=== PATIENT | female | born 1950 | race Hispanic/Latino ===

== ENCOUNTER → 2022-09-03 | Outpatient (CLI) | payer OTHER | END | disposition home or self-care (01) | LOC: RAH 14:53 | PROVIDERS: ATTEND Internal Medicine | DX: I70.0 Atherosclerosis of aorta (principal); R94.4 Abnormal results of kidney function studies; M47.815 Spondylosis without myelopathy or radiculopathy, thoracolumbar region; N13.30 Unspecified hydronephrosis | CPT/HCPCS: 74176 ==

== ENCOUNTER → 2022-10-01 | Outpatient (CLI) | payer OTHER ==
[~2022-10-01] MED LIST: FUROSEMIDE 20MG VIAL ONE
== END | disposition home or self-care (01) ==
LOC: RAH 13:53
PROVIDERS: ATTEND Urology
DX: N13.30 Unspecified hydronephrosis (principal)
CPT/HCPCS: 78708; J1940; A9562

== ENCOUNTER → 2023-04-26 | Outpatient (CLI) | payer OTHER | END | disposition home or self-care (01) | LOC: RAH 13:31 | PROVIDERS: ATTEND Internal Medicine | DX: R91.1 Solitary pulmonary nodule (principal) | CPT/HCPCS: 74150 ==

== ENCOUNTER → 2024-03-14 | Outpatient (CLI) | payer OTHER | END | disposition home or self-care (01) | LOC: RAH 08:46 | PROVIDERS: ATTEND Internal Medicine | DX: N18.32 Chronic kidney disease, stage 3b (principal) | CPT/HCPCS: 76700 ==

== ENCOUNTER → 2025-09-04 | Outpatient (CLI) | payer OTHER ==
[~2025-09-04] MED LIST changes: -FUROSEMIDE 20MG VIAL ONE; +IOHEXOL 350 MG/ML 100ML INFUS..BTL IV ONE
--- NOTE | 2025-09-05 10:31 | HMCIMG ---
EXAM: CT Abdomen and Pelvis with and without IV contrast CLINICAL HISTORY: Unspecified hydronephrosis TECHNIQUE: Axial computed tomography images of the abdomen and pelvis with and without intravenous contrast. CONTRAST: with and without intravenous contrast. COMPARISON: None provided. FINDINGS: LUNG BASES: The lung bases appear clear. No pleural effusions are seen. LIVER: Unremarkable. GALLBLADDER AND BILE DUCTS: The gallbladder appears within normal limits. No radioopaque gallstones are seen. No biliary ductal dilatation is evident. PANCREAS: Unremarkable. SPLEEN: Unremarkable. ADRENAL GLANDS: Unremarkable. KIDNEYS, URETERS, AND BLADDER: There is mild left-sided hydrouretronephrosis with air locules in the ureter and left renal calyceal system with surrounding perinephric fat stranding. There is mild right-sided hydrouretronephrosis with mild perinephric fat stranding. 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 There is an enhancing wall thickening in the bilateral ureters. No urinary calculi are seen. No hydronephrosis. Thick-walled urinary bladder with adjacent stranding, consistent with cystitis. Air noted in the urinary bladder which may be due to recent instrumentation. STOMACH AND BOWEL: Colonic diverticulosis without diverticulitis. Unremarkable appearance of the stomach and small bowel. No evidence of bowel obstruction. No evidence suggesting enteritis or colitis. 1.2 cm-sized umbilical defect with omental fat herniation. PERITONEUM: No free fluid. No free air. LYMPH NODES: No lymphadenopathy is evident. REPRODUCTIVE: The uterus is not well visualized. VASCULATURE: Atherosclerotic changes in the form of eccentric vessel wall calcification in the abdominal aorta and its major branches. No evidence of abdominal aortic aneurysm. BONES: Degenerative changes in the visualized spine in the form of marginal osteophytes and degenerative discs at multiple lumbar levels. No aggressive appearing osseous lesion. No acute osseous pathology is evident. IMPRESSION: 1. Bilateral hydrouretronephrosis, more prominent on the left. Air in the left ureter and renal calyceal system which may be due to reflux of air from the urinary bladder or may be due to emphysematous pyelonephritis. Clinical correlation is recommended. 2. Enhancing wall thickening of bilateral ureters, consistent with pyelitis. 3. Thick-walled urinary bladder with adjacent stranding, consistent with cystitis. Air noted in the urinary bladder which may be due to recent instrumentation. 4. Completely duplicated left ureter. 5. No bowel obstruction or inflammation. 6. Colonic diverticulosis without diverticulitis. /[place]
== END | disposition home or self-care (01) ==
LOC: RAH 08:24
PROVIDERS: ATTEND Internal Medicine
DX: K57.30 Diverticulosis of large intestine without perforation or abscess without bleeding (principal); N13.30 Unspecified hydronephrosis; I70.0 Atherosclerosis of aorta; M47.816 Spondylosis without myelopathy or radiculopathy, lumbar region; M51.369 Other intervertebral disc degeneration, lumbar region without mention of lumbar back pain or lower extremity pain; M25.78 Osteophyte, vertebrae
CPT/HCPCS: 74178; Q9967

== ENCOUNTER 2025-09-13 13:35 | Inpatient (IN) | payer OTHER ==
[~2025-09-13] VITALS: Ht 165.1 cm; Wt 102.1 kg
[2025-09-13 14:11] LABS: NUCLEATED RED BLOOD CELLS 0.0 % (0.0-0.19); PLATELET COUNT (AUTO) 259.0 K/uL (130-400); RED BLOOD CELL COUNT(AUTO) 3.49 MIL/uL (4.00-5.50); RED CELL DISTRIBUTION WIDTH 14.6 % (11.0-15.5); WHITE BLOOD COUNT (AUTO) 8.4 K/uL (4.8-10.8)
[2025-09-13 14:24] LABS: INR 1.03 (0.85-1.15)
[2025-09-13 14:27] LABS: ASPARTATE AMINOTRANSFERASE 24.0 U/L (10-37); CREATININE 1.3 mg/dL (0.5-1.0); GLOMERULAR FILTR. RATE CALC 43.0 mL/min (>90); GLUCOSE,RANDOM 154.0 mg/dL (70-105); SODIUM SERUM 143.0 mmol/L (136-145); TOTAL PROTEIN, SERUM 7.4 g/dL (6.0-8.3); UREA NITROGEN, BLOOD 28.0 mg/dL (7-18)
--- NOTE | 2025-09-13 15:05 | NUR ---
DCP:HOME Pt currently lives at home and her granddaughter lives with her. Pt states that she uses a cane to ambulate. Pt denies having any home health or provider services. Pt states that she can complete ADLs independently. PCP is Dr. Meraz and uses [facility] for any RX needs. At [place] pt will want to go home and family can assist with transportation. Addendum: 09/13/25 at 1507 by RICK SPAIN SS Amended: Links added.
[2025-09-13 18:07] LABS: ADD UA MICROSCOPIC YES; APPEARANCE,URINE CLEAR (CLEAR); GLUCOSE, URINE (UA) >=1000 mg/dL (NEGATIVE); NITRATE,URINE NEGATIVE (NEGATIVE); OCCULT BLOOD,URINE NEGATIVE (NEGATIVE)
[2025-09-13 18:08] LABS: SQUAMOUS EPITHELIAL CELL,UR FEW /HPF (0-2)
[2025-09-13 18:11] LABS: LEUKOCYTE ESTERASE ,URINE 75 Leu/uL (NEGATIVE)
--- NOTE | 2025-09-13 18:40 | NUR ---
REPORT GIVEN TO LEONARDO KING.
--- NOTE | 2025-09-13 18:40 | NUR ---
PATIENT TRANSPORTED TO [facility].
--- NOTE | 2025-09-13 18:54 | NUR ---
DR HARRIS AT BEDSIDE.
--- NOTE | 2025-09-13 19:00 | NUR ---
RECEIVED PATIENT FROM ER INTO ROOM #124, DAUGHTER AT BEDSIDE.
[2025-09-13] MEDS ORDERED: SOLI5TAB6 PO (20:35)
[2025-09-13] MEDS ORDERED: ROSU10TA98 PO (20:39)
[2025-09-13] MEDS ORDERED: LOSA25TA41 PO (20:41)
[2025-09-13] MEDS ORDERED: ATEN25TA PO (20:42)
[2025-09-13] MEDS ORDERED: LORA10TA7 PO (20:56)
[2025-09-13] MEDS ORDERED: IRON1CAP3 PO (20:56)
[2025-09-13] MEDS ORDERED: FOLI0.8T22 PO (20:56)
[2025-09-13] MEDS ORDERED: AMOX1TAB15 PO (20:56)
[2025-09-13] MEDS ORDERED: DAPA10TA PO (20:56)
[2025-09-13] MEDS ORDERED: CALC1TAB2 PO (20:56)
[2025-09-13] MEDS ORDERED: ACET-66 PO (20:56)
[2025-09-13] MEDS ORDERED: SENN-316 PO (20:56)
[2025-09-13] MEDS ORDERED: FLUT15.845 NS (20:56)
[2025-09-13] MEDS ORDERED: FINE10TA PO (20:56)
[2025-09-13] MEDS: LACTATED RINGERS 1000ML 1,000 ML IV SCH (22:26)
[2025-09-14] VITALS (8 sets, daily range): BP systolic 113–153; BP diastolic 62–78; PULSE 54–72; RESP 12–20; TEMP 97.7–98.4; O2SAT 95–97
[2025-09-14] MEDS: MEROPENEM 1GM 1 GM VIAL IVPB SCH (01:08)
--- NOTE | 2025-09-14 07:13 | NUR ---
SOTO CATHETER DR MENA ORDERED 16FR F/C TO BE PLACED FOR THIS PT. 3 ATTEMPTS MADE WITH 16FR AND 2 COUDE BY THIS NURSE AND 2 OTHER NURSES. OUTPUT FOR TONIGHT 550 HOWEVER PT IS INCONTINENT WELL. ABOVE REPORTED TO ONCOMING SHIFT.
--- NOTE | 2025-09-14 07:27 | HP ---
HISTORY AND PHYSICAL DATE OF SERVICE: 09/13/2025 PRESENTING COMPLAINT: Flank pain and abnormal imaging. HISTORY OF PRESENT ILLNESS: A 74-year-old female with history of obesity, hypertension, diabetes mellitus, who was being admitted directly from the clinic. The patient was seen in my clinic today due to finding of abnormal imaging with possible pyelonephritis and cystitis. Recent urine culture done in the primary care clinic came back positive for UTI and the patient was given Augmentin. CT urogram shows possible pyelonephritis. The patient is with some flank pain. Also intermittent chills and running fever. The patient complains of urinary incontinence. No cough. No shortness of breath. No palpitations or orthopnea. PAST MEDICAL HISTORY: * Morbid obesity. * Hypertension. * Diabetes mellitus. * Osteoarthritis. * Dyslipidemia. * UTI. PAST SURGICAL HISTORY: Bilateral total knee arthroplasty. Hysterectomy. ALLERGIES: No known drug allergies. MEDICATIONS: To be reviewed. SOCIAL HISTORY: No alcohol, tobacco, or illicit drug use. FAMILY HISTORY: Positive for diabetes mellitus. REVIEW OF SYSTEMS: Greater than 10-systems were reviewed and negative except as documented above. PHYSICAL EXAMINATION: GENERAL: An elderly female, awake, in no acute distress. VITAL SIGNS: Temperature 97.9, pulse 55, respiratory rate 19, blood pressure 162/59. EYES: No icterus. Pupils equal and reactive. HENT: No oral thrush seen. Moist oral mucosa. NECK: Supple. No JVD or thyromegaly. LUNGS: Good air entry. No rales ____. CARDIOVASCULAR SYSTEM: S1 and S2, regular. No murmur heard. ABDOMEN: Full, soft, nontender. Bowel sound is present. CENTRAL NERVOUS SYSTEM: Awake, alert and oriented x 3. No focal deficits. SKIN: No rashes. LYMPHATIC: No peripheral lymphadenopathy. BACK: No deformity. No pressure ulcer. MUSCULOSKELETAL: No joint swelling, erythema or tenderness. LABORATORY DATA: WBC 8.4, hemoglobin 11.0, platelet count 251. Sodium 142, potassium 4.7, BUN , creatinine 1.3. Urinalysis showed WBC 25, leukocyte esterase 75. RADIOLOGY: CT of the abdomen done on 09/04/2025 reported as bilateral hydronephrosis, more prominent on the left, may be due to reflux of urinary bladder. ASSESSMENT: A 74-year-old female admitted for possible pyelonephritis. CURRENT PROBLEMS: Include: * Possible pyelonephritis. * Bilateral hydronephrosis. * Diabetes mellitus. * Morbid obesity. * Urinary tract infection. * Dyslipidemia. * Hypertension. PLAN: * Admit the patient to medical floor. * The patient will be given ceftriaxone. * Urology evaluation. * Tylenol as needed for pair or fever. * Zofran for nausea, vomiting. * Lispro sliding scale. * ADA diet. * Home medication will be reconciled. * Monitor electrolytes and correct as needed. * Urology evaluation. TID: [id number] RECEIPT: [id number] [facility]
[2025-09-14] MEDS ORDERED: IOHEXOL-350 75 ML VIAL IV ONE (08:18)
--- NOTE | 2025-09-14 08:23 | CONS ---
DATE OF CONSULTATION: 09/13/2025 REQUESTING PHYSICIAN: Manav Pang MD REASON FOR CONSULTATION: Hydronephrosis and urinary tract infection. Dear Dr. Pang, I originally seen your patient for evaluation of hydronephrosis. HISTORY OF PRESENT ILLNESS: This is a 74-year-old female who apparently was visiting her daughter in [place] several weeks ago, fell. She had some pain in her back. She had a CT scan done of the abdomen and pelvis, and was noted to have bilateral hydronephrosis. Consultation was requested. The patient up on her return to [place], currently the patient states she is surprised to be in hospital. She has no pain, no fever, no chills, no dysuria. She has a history of urinary incontinence for which she has used Ditropan. She has no gross hematuria. No history of kidney stones. She was previously being seen for incomplete bladder emptying by a urologist up to about a year ago and currently lying in bed comfortably. ALLERGIES: None. MEDICATIONS: The patient's home medications have included Keflex. She is also on medication for diabetes as well as hyperglycemia and hypertension. PAST MEDICAL HISTORY: Diabetes type 2, hyperglycemia, and hypertension. PAST SURGICAL HISTORY: Significant for hysterectomy and bilateral knee replacements. FAMILY HISTORY: No kidney stones. 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 She has three children. Does not smoke or drink. REVIEW OF SYSTEMS: She has no symptoms of chest pain. Her appetite is good. No nausea or vomiting. No constipation or diarrhea. No headaches, dizziness, or nosebleeds. No joint pain, joint swelling, limitation of movement, night sweats, fever, chills, or skin rash. PHYSICAL EXAMINATION: GENERAL: On exam, female in no distress whatsoever. VITAL SIGNS: Temperature is 98, blood pressure is 140/80 with a pulse of 82. NECK: No adenopathy or supraclavicular masses palpable. LUNGS: Lung dhaliwal are clear to auscultation. HEART: Heart sounds are best heard in the fifth intercostal space . ABDOMEN: Abdomen is obese, soft, nontender. BACK: Back has no CVA tenderness. GENITALIA AND RECTAL: Deferred LABORATORY DATA: Laboratory data are reviewed in detail. The patient's sodium is 143, potassium 4.7, BUN 28 and creatinine 1.3. The patient's white count is 8.4, hematocrit is 35, platelet count 259. Urine actually shows cloudy urine, large amount of glucose. She has no bacteria, occasional white cells, no red cells. IMAGING STUDIES: Imaging studies reviewed today include a CT scan of her abdomen and pelvis with IV contrast shows incomplete duplication of collecting system on the left side with hydronephrosis. There may be a small amount of air in the collecting system on the left side performed 4 days ago. In addition, the bladder is moderately distended with some perivesical stranding consistent with possible cystitis. The patient has a small amount of air also in the bladder. ASSESSMENT: 1. Hematuria. 2. Duplicated collecting system, left side. 3. Mild hydronephrosis. RECOMMENDATIONS: 1. The patient to be placed on IV fluids with lactated Ringer's. 2. Meropenem is advised 1 gm q. 8 hours unless alternative medication has already been ordered by her admitting physician. 3. Tam catheter placement. 4. IV contrast enhanced CT scan of her abdomen and pelvis with IV contrast CT urogram. The patient has concerns and questions answered. Once the patient is discharged, follow up with PCP for referral to Urology. The patient's home medications include acetaminophen. She was previously on Augmentin. She is on Tylenol. She is also on Phenazone, fluticasone, folic acid, iron complex, loratadine, losartan, and rosuvastatin. The patient is also taking Vesicare 5 mg. The patient's questions were answered. Thank you for the opportunity of providing consulting your patient. Sincerely, TID: [id number] RECEIPT: [id number]
[2025-09-14] MEDS ORDERED: DOCUSATE SODIUM PO PRN (13:30)
[2025-09-14] MEDS ORDERED: SENNOSIDES PO PRN (13:30)
--- NOTE | 2025-09-14 18:10 | NUR ---
SOTO CATHETER ATTEMPTED TO INSERT SOTO CATHETER AT THIS TIME. DESPITE MULTIPLE ATTEMPTS, UNABLE TO INSERT SOTO CATHETER.
[2025-09-14] MEDS: CALCIUM CARBONATE PO SCH (20:31)
[2025-09-14] MEDS: ATENOLOL 25 MG TABLET PO SCH (20:31)
[2025-09-14] MEDS: VITAMIN D3 PO SCH (20:31)
--- NOTE | 2025-09-14 21:56 | NUR ---
CATHETER INSERTION SOTO UNABLE TO BE INSERTED X 2 NURSES. 16 FR, 14 FR ATTEMPTED, UNSUCCESSFUL. 10 FR STRAIGHT CATH INSERTED AT THIS TIME, CONNECTED TO SOTO BAG, DRAINING CLEAR YELLOW URINE. HELD IN PLACE WITH PUREWICK AND MESH PANTIES. PATIENT TURNING FOR BATHROOM CHANGES AT THIS TIME.
--- NOTE | 2025-09-14 22:13 | HMCIMG ---
EXAM: CT SCAN OF THE ABDOMEN AND PELVIS WITH INTRAVENOUS CONTRAST Technique: Multidetector computed tomography of the abdomen and pelvis was performed after intravenous administration of iodinated contrast. Thin axial images with coronal and sagittal reformations were obtained. Dose reduction techniques were applied in accordance with ???as low as reasonably achievable??? principles. Clinical Information: Hydronephrosis. Comparison: CT urogram of September 04, 2025 at 09:35 EDT. Technique Limitations: None significant. Findings: Lung bases: Clear. No pleural effusion. Liver: Unremarkable in size and attenuation. No focal hepatic lesion identified. Gallbladder and bile ducts: Gallbladder within normal limits. No radiopaque gallstones. No intrahepatic or extrahepatic biliary dilatation. Pancreas: Unremarkable. Spleen: Unremarkable. Adrenal glands: Unremarkable. Kidneys, ureters, and urinary bladder: Interval increase in left hydroureteronephrosis and interval increase in right hydroureteronephrosis compared with the prior examination. No obstructing calculus identified on either side. A completely duplicated left ureter is present, with ureteral fusion at the vesicoureteric junction. Previously noted ureteral mural enhancement has resolved. There is no perinephric fluid collection; perinephric fat stranding is minimal to absent on the current study. Findings raise the possibility of vesicoureteric reflux or bladder outlet dysfunction as a non-calculous cause of hydronephrosis. The urinary bladder is thick walled with mild adjacent fat stranding, consistent with cystitis. Intraluminal gas is present in the urinary bladder and may reflect recent instrumentation; correlate clinically. Stomach and bowel: Stomach and small bowel are unremarkable. Colonic diverticulosis without diverticulitis. No bowel obstruction. Small umbilical hernia (approximately 1.2 centimeters) containing omental fat. Peritoneum: No free fluid. No free air. Lymph nodes: No lymphadenopathy. Vasculature: Atherosclerotic calcifications of the abdominal aorta and major branches. No abdominal aortic aneurysm. Bones and soft tissues: Degenerative changes in the lumbar spine with marginal osteophytes and multilevel disc degeneration. No acute osseous abnormality. No aggressive osseous lesion. Impression: * Interval increase in bilateral hydroureteronephrosis (left greater than right) without obstructing calculus. Duplicated left ureter with fusion at the vesicoureteric junction. Findings are most compatible with vesicoureteric reflux and/or bladder outlet dysfunction in the appropriate clinical setting. * Thick-walled urinary bladder with mild perivesical stranding, consistent with cystitis. Intravesical gas likely due to recent instrumentation; if no instrumentation, consider emphysematous cystitis in the appropriate clinical context. * Resolution of previously described ureteral mural enhancement since September 04, 2025. * Colonic diverticulosis without diverticulitis. * Small fat-containing umbilical hernia. * Aortoiliac atherosclerosis. * Degenerative changes of the lumbar spine. /[place]
--- NOTE | 2025-09-14 22:38 | NUR ---
SPOKE WITH DR. MENA'S EXECUTIVE CHAIRMAN EXECUTIVE CHAIRMAN FROM DR. MENA'S OFFICE CALLED ASKING FOR RESULTS OF CT/ABD PELVIS. COMMUNICATED TO OFFICE LIASON REGARDING DIFFICULTY INSERTING SOTO CATHETER, INFORMATION FORWARDED TO DR. MENA. PER DR. MENA, CT ABD/PELVIS TO BE PLACED STAT AT 0500 ON 09/15/2025 WITH 10 FR CATHETER INSERTION. PASSED ON THAT 10 FR CATHETER HAD NO BALLOON, WAS UNABLE TO BE INFLATED.
--- NOTE | 2025-09-14 23:45 | PN ---
INFECTIOUS DISEASE FOLLOWUP NOTE DATE OF SERVICE: 09/14/2025 SUBJECTIVE: The patient is seen and examined at bedside today. The patient has no fevers, no chills. No nausea, no vomiting. No bleeding tendency. No palpitations or orthopnea. The patient was evaluated by urology. A CT of abdomen has been ordered. No neck pain, no neck swelling. PHYSICAL EXAMINATION: VITAL SIGNS: Temperature 96.9. EYES: No icterus. Pupils are equal and reactive. HENT: No oral thrush seen. Moist oral mucosa. NECK: Supple. No JVD or thyromegaly. LUNGS: Good air entry. No rales, no rhonchi. CARDIOVASCULAR: S1 and S2, regular. ABDOMEN: Soft, nontender. Bowel sound is present. CENTRAL NERVOUS SYSTEM: Awake, alert, oriented x3. No focal deficits. SKIN: No rashes, no itchiness. LYMPHATIC: No peripheral lymphadenopathy. BACK: No deformity, no pressure ulcer. MUSCULOSKELETAL: No joint swelling, erythema or tenderness. ASSESSMENT: This is a 74-year-old female with pyelonephritis. Current problems include: * Possible pyelonephritis. * Morbid obesity. * Hypertension. * Diabetes mellitus. * Dyslipidemia. PLAN: * Followup CT abdomen result. * Continue ceftriaxone. * Continue pain management. * Continue ____ * Continue to monitor electrolytes. * Continue nutritional support. * The patient will be followed closely. TID: [id number] RECEIPT: [id number]
[2025-09-15] VITALS (8 sets, daily range): BP systolic 120–139; BP diastolic 63–82; PULSE 42–57; RESP 16–20; TEMP 97.5–98.1; O2SAT 96–98
--- NOTE | 2025-09-15 | NUR ---
12 FR SOTO CATHETER INSERTION ASSISTED WITH INSERTING 12 FR SOTO CATHETER WITH FERNANDO US. PATIENT TOLERATED WELL, DRAINING CLEAR YELLOW URINE, EXCHANGED 10 FR STRAIGHT CATH. ASEPTIC TECHNIQUE MAINTAINED.
--- NOTE | 2025-09-15 05:26 | HMCIMG ---
EXAM: CT Abdomen and Pelvis without IV contrast CLINICAL HISTORY: Hydronephrosis. Status post Tam's catheter insertion. TECHNIQUE: Thin collimated axial CT images of the abdomen and pelvis were obtained, with sagittal and coronal reformatted images also submitted. A CT scan is done according to ALARA (As Low As Reasonably Achievable). CONTRAST: None. COMPARISON: CT abdomen pelvis dated 09/14/2025. FINDINGS: Lung bases: Clear. No pleural effusion. Liver: Unremarkable in size and attenuation. No focal hepatic lesion identified. Gallbladder and bile ducts: Biliary excretion of the previously injected intravenous contrast with a mildly hyperdense gallbladder. Gallbladder within normal limits. No radiopaque gallstones. No intrahepatic or extrahepatic biliary dilatation. Pancreas: Unremarkable. Spleen: Unremarkable. Adrenal glands: Unremarkable. Kidneys, ureters, and urinary bladder: Mild hydroureteronephrosis bilaterally with mild interval improvement compared to the recent CT. No obstructing calculus identified on either side. A completely duplicated left ureter is present, with ureteral fusion at the vesicoureteric junction. There is no perinephric fluid collection; perinephric fat stranding. Interval placement of a Tam's catheter within the urinary bladder. The urinary bladder is empty with features of chronic cystitis. Stomach and bowel: Stomach and small bowel are unremarkable. Colonic diverticulosis without diverticulitis. No bowel obstruction. Small umbilical hernia (approximately 1.2 centimeters) containing omental fat. Peritoneum: No free fluid. No free air. Lymph nodes: No lymphadenopathy. Vasculature: Atherosclerotic calcifications of the abdominal aorta and major branches. No abdominal aortic aneurysm. Bones and soft tissues: Degenerative changes in the lumbar spine with marginal osteophytes and multilevel disc degeneration. No acute osseous abnormality. No aggressive osseous lesion. Impression: Mild hydroureteronephrosis bilaterally with mild interval improvement compared to the recent CT. left ureteral duplication. Interval placement of a Tam's catheter within the urinary bladder. The urinary bladder is empty with features of chronic cystitis. The remaining findings are unchanged. /[place]
[2025-09-15] MEDS: Vitamin B Complex/Vit C/Folic Acid PO SCH (08:19)
[2025-09-15] MEDS: LORATAdine 10 mg 10 MG TABLET PO SCH (08:19)
[2025-09-15] MEDS: VIT B12 PO SCH (09:00)
[2025-09-15] MEDS: IRON PS CMPLX PO SCH (09:00)
[2025-09-15] MEDS: FINERENONE 10 MG PO SCH (09:00)
[2025-09-15] MEDS: (Dapagliflozin Propanediol (Farxiga) 10MG TAB) PO SCH (09:00)
[2025-09-15] MEDS: [UNRECOGNIZED DRUG - OTHER] PO SCH (09:00)
[2025-09-15] MEDS ORDERED: DEXTROSE 50%-WATER 50 ML DISP.SYRIN IV PRN (10:00)
[2025-09-15] MEDS ORDERED: GLUCAGON 1MG KIT 1 MG ML IM PRN (10:00)
--- NOTE | 2025-09-15 16:34 | PN ---
INFECTIOUS DISEASE PROGRESS NOTE Date of Service: Sep 15, 2025 SUBJECTIVE: This is a 74-year-old female patient admitted to the hospital for right flank pain and an abnormal CT showing pyelonephritis. On admission to the hospital patient was afebrile and the WBC was 8.4. A CT scan of the abdomen and pelvis was done last night which showed increased bilateral hydroureteronephrosis left greater than right without obstructing calculus, cystitis and duplicated left ureteral with fusion at the vesicoureteral junction compatible with bladder outlet dysfunction. Urologist evaluated patient and recommended a Tam catheter which was placed last night. The CT scan of the abdomen and pelvis was repeated this morning and the hydroureteronephrosis showed improvement. Patient has been started on Meropenem 1 g IV every 12 hours. No fever this morning, temperature is 98.1 and patient reported that the flank pain is resolving. We will follow up on culture results. PHYSICAL EXAM EYES: Anicteric. Pupils equal and reactive. HENT: No oral thrush seen, moist Oral mucosa. NECK: Supple, no JVD or thyromegaly. LUNGS: Good air entry. No rales, no rhonchi. CARDIOVASCULAR: S1, S2 regular. No murmur heard. ABDOMEN: Soft, non tender, bowel sounds present, no organomegaly. CENTRAL NERVOUS SYSTEM: Awake, alert, oriented x 3. SKIN: No rashes, no swelling. LYMPHATICS: No peripheral lymphadenopathy MUSCULOSKELETAL: No joint swelling, erythema or tenderness. EXTREMITIES: No cyanosis or clubbing BACK: No deformity, no pressure ulcer. Right flank pain radiating to the lower back, improving. GENITOURINARY: No dysuria or hematuria Vital Sign (Last 12 Hours) 09/15/25 09/15/25 09/15/25 09/15/25 07:48 09:52 12:05 15:57 Temp 98.1 98.1 98.1 Pulse 42 52 51 Resp 18 18 18 B/P (MAP) 127/65 135/75 139/82 Pulse Ox 98 98 97 100 O2 Delivery Room Air Room Air* Room Air Room Air O2 Flow Rate 0 FiO2 21 Intake & Output (last 24hrs) 09/14/25 09/14/25 09/15/25 15:00 23:00 07:00 Intake Total 360 ml 800.0 ml Output Total 1300 ml Balance 360 ml -500.0 ml LABS: Laboratory: Test 09/15/25 15:21 09/13/25 17:42 Range/Units Whole Blood Glucose 143 H 70-110 MG/DL Urine Color COLORLESS YELLOW Urine Appearance CLEAR CLEAR Urine pH 6.0 5.0-8.0 Urine Specific [place] 1.008 1.001-1.031 Urine Protein NEGATIVE NEGATIVE mg/dL Urine Glucose (UA) >=1000 H NEGATIVE mg/dL Urine Ketones NEGATIVE NEGATIVE mg/dL Urine Occult Blood NEGATIVE NEGATIVE Urine Nitrate NEGATIVE NEGATIVE Urine Bilirubin NEGATIVE NEGATIVE mg/dL Urine Urobilinogen 0.2 0.2-1.0 mg/dL Urine Leukocyte Esterase 75 H NEGATIVE Nick/uL Urine RBC 0-1 0-1 /HPF Urine WBC 11-25 H 0-1 /HPF Urine Squamous Epithelial Cells FEW 0-2 /HPF Urine Bacteria None None Seen /HPF ASSESSMENT: Urinary tract infection. Possible pyelonephritis. Bilateral hydronephrosis. Diabetes mellitus. Morbid obesity. PLAN: Continue Meropenem 1 g IV every 12 hours. Continue pain management. Start hyperglycemia protocol. Glucometer checks a.c./hs and cover with insulin per sliding scale protocol. Urologist has evaluated patient and a Tam catheter has been placed. We will follow up on the culture results. This case was reviewed and discussed with my supervising physician Dr. Pang and the above assessment and plan was formulated and agreed upon. ATTESTATION BY PHYSICIAN I have seen and examined the patient. I reviewed the documentation, medical decision making, and treatment plan as noted by the mid-level provider above. I agree with the findings and plan of care. LISA PANG MD, [facility] Sep 15, 2025 16:34
[2025-09-16] VITALS (7 sets, daily range): BP systolic 125–159; BP diastolic 67–77; PULSE 44–54; RESP 14–19; TEMP 97.4–98.2; O2SAT 94–98
[2025-09-16 04:07] LABS: NUCLEATED RED BLOOD CELLS 0.0 % (0.0-0.19); PLATELET COUNT (AUTO) 212.0 K/uL (130-400); RED BLOOD CELL COUNT(AUTO) 3.33 MIL/uL (4.00-5.50); RED CELL DISTRIBUTION WIDTH 14.5 % (11.0-15.5); WHITE BLOOD COUNT (AUTO) 7.8 K/uL (4.8-10.8)
[2025-09-16 04:43] LABS: ASPARTATE AMINOTRANSFERASE 20.0 U/L (10-37); CREATININE 1.3 mg/dL (0.5-1.0); GLOMERULAR FILTR. RATE CALC 43.0 mL/min (>90); GLUCOSE,RANDOM 127.0 mg/dL (70-105); SODIUM SERUM 142.0 mmol/L (136-145); TOTAL PROTEIN, SERUM 6.4 g/dL (6.0-8.3); UREA NITROGEN, BLOOD 23.0 mg/dL (7-18)
--- NOTE | 2025-09-16 10:45 | NUR ---
PAGED DR MENA PAGED IN REGARDS TO SOTO CATHETER UPON DISCHARGE. PER ANSWERING SERVICE WILL NOTIFY DR MENA.
[2025-09-16] MEDS: MAGNESIUM 2GM PREMIX 50ML 50 ML IV PRN (21:19)
[2025-09-17] VITALS: BP 128/64; PULSE 47; RESP 20; TEMP 97.6
--- NOTE | 2025-09-17 00:58 | PN ---
INFECTIOUS DISEASE PROGRESS NOTE Date of Service: Sep 16, 2025 SUBJECTIVE: This is a 74-year-old female patient who was seen and examined at bedside in room 124. Patient is awake, alert and oriented x3. No fever this morning, temperature is 97.7 and the WBC is 7.8. No reports of nausea or vomiting. Patient is having large amount of urine output into the Tam catheter. Patient denying abdominal pain and flank pain. No growth reported in the urine culture results. Continues on Meropenem. We will await clearance from urologist standpoint for discharge. PHYSICAL EXAM EYES: Anicteric. Pupils equal and reactive. HENT: No oral thrush seen, moist Oral mucosa. NECK: Supple, no JVD or thyromegaly. LUNGS: Good air entry. No rales, no rhonchi. CARDIOVASCULAR: S1, S2 regular. No murmur heard. ABDOMEN: Soft, non tender, bowel sounds present, no organomegaly. CENTRAL NERVOUS SYSTEM: Awake, alert, oriented x 3. SKIN: No rashes, no swelling. LYMPHATICS: No peripheral lymphadenopathy MUSCULOSKELETAL: No joint swelling, erythema or tenderness. EXTREMITIES: No cyanosis or clubbing BACK: No deformity, no pressure ulcer. Right flank pain radiating to the lower back, improving. GENITOURINARY: No dysuria or hematuria Vital Sign (Last 12 Hours) 09/16/25 09/16/25 09/16/25 09/16/25 16:00 20:00 20:00 21:19 Temp 97.7 98.1 Pulse 52 52 52 Resp 19 18 B/P (MAP) 125/67 152/70 152/70 Pulse Ox 95 98 98 O2 Delivery Room Air Room Air Room Air* O2 Flow Rate 0 FiO2 21 21 09/17/25 00:00 Temp 97.5 Pulse 47 Resp 20 B/P (MAP) 128/64 Pulse Ox 98 O2 Delivery Room Air Intake & Output (last 24hrs) 09/16/25 09/16/25 09/17/25 15:00 23:00 07:00 Intake Total 100 ml 1900 ml Output Total 1600 ml 2000 ml Balance -1500 ml -100 ml LABS: Laboratory: Test 09/16/25 20:50 09/16/25 04:01 Range/Units Whole Blood Glucose 138 H 70-110 MG/DL White Blood Count 7.8 4.8-10.8 K/uL Red Blood Count 3.33 L 4.00-5.50 MIL/uL Hemoglobin 10.5 L 12.0-16.0 g/dL Hematocrit 32.0 L 36-48 % Mean Corpuscular Volume 96.1 79-99 fL Mean Corpuscular Hemoglobin 31.5 27.0-33.0 pg Mean Corpuscular Hemoglobin Concent 32.8 32.0-36.0 g/dL Red Cell Distribution Width 14.5 11.0-15.5 % Platelet Count 212 130-400 K/uL Mean Platelet Volume 8.6 7.5-10.5 fL Nucleated Red Blood Cells 0.0 0.0-0.19 % Sodium Level 142 136-145 mmol/L Potassium Level 4.0 3.5-5.1 mmol/L Chloride Level 106 101-111 mmol/L Carbon Dioxide Level 30 21-32 mmol/L Blood Urea Nitrogen 23 H 7-18 mg/dL Creatinine 1.3 H 0.5-1.0 mg/dL Glomerular Filtration Rate Calc 43 >90 mL/min Random Glucose 127 H 70-105 mg/dL Total Calcium 8.2 L 8.5-10.1 mg/dL Magnesium Level 1.70 L 1.80-2.40 mg/dL Total Bilirubin 0.5 0.2-1.0 mg/dL Aspartate Amino Transf (AST/SGOT) 20 10-37 U/L Alanine Aminotransferase (ALT/SGPT) 22 12-78 U/L Alkaline Phosphatase 48 L 50-136 U/L Total Protein 6.4 6.0-8.3 g/dL Albumin 3.0 L 3.5-5.0 g/dL ASSESSMENT: Urinary tract infection. Possible pyelonephritis. Bilateral hydronephrosis. Diabetes mellitus. Morbid obesity. PLAN: Continue Meropenem. Continue pain management. Continue monitoring blood sugar levels and cover with insulin per sliding scale protocol. Urologist has evaluated patient and a Tam catheter has been placed. We will monitor electrolytes. This case was reviewed and discussed with my supervising physician Dr. Pang and the above assessment and plan was formulated and agreed upon. ATTESTATION BY PHYSICIAN I have seen and examined the patient. I reviewed the documentation, medical de cision making, and treatment plan as noted by the mid-level provider above. I agree with the findings and plan of care. LISA PANG MD, [facility] Sep 17, 2025 00:58
[2025-09-17 04:00] VITALS: BP 122/63; PULSE 43; RESP 16; TEMP 97.4
[2025-09-17 05:31] LABS: IMMATURE GRANULOCYTE ABSOLUTE 0.08 K/uL (0-1); NUCLEATED RED BLOOD CELLS 0.0 % (0.0-0.19); PLATELET COUNT (AUTO) 192 K/uL (130-400); RED BLOOD CELL COUNT(AUTO) 3.43 MIL/uL (4.00-5.50); RED CELL DISTRIBUTION WIDTH 14.4 % (11.0-15.5); WHITE BLOOD COUNT (AUTO) 8.6 K/uL (4.8-10.8)
[2025-09-17 05:57] LABS: CREATININE 1.3 mg/dL (0.5-1.0); GLOMERULAR FILTR. RATE CALC 43.0 mL/min (>90); GLUCOSE,RANDOM 126.0 mg/dL (70-105); SODIUM SERUM 140.0 mmol/L (136-145); UREA NITROGEN, BLOOD 27.0 mg/dL (7-18)
[2025-09-17 08:00] VITALS: BP 139/72; PULSE 44; RESP 14; TEMP 97.4; O2SAT 99
[2025-09-17 11:40] VITALS: BP 119/64; PULSE 54; RESP 16; TEMP 97.7
[2025-09-17 16:00] VITALS: BP 117/49; PULSE 52; RESP 15; TEMP 97.3
--- NOTE | 2025-09-17 16:37 | NUR ---
PATIENT IS DISCHARGED, BUT VOICED THAT SHE WOULD LIKE TO FINISH HER IV ANTIBIOTIC AND THAT HER GRANDDAUGHTER WOULD NOT BE ABLE TO PICK HER UP UNTIL AFTER 1744. PATIENT IV STILL REMAINS IN ARM AT THIS TIME INFUSING ANTIBIOTIC.
--- NOTE | 2025-09-17 18:56 | NUR ---
PATIENT'S IV TAKEN OUT WITH CATHETER INTACT AND TAKEN OUT BY [employer]IST.
--- NOTE | 2025-09-17 20:16 | DS ---
STEPHANIE LIZARRAGA [facility] Sep 17, 2025 20:16
--- NOTE | 2025-09-17 20:17 | DS ---
Discharge Summary Hospital Course FINAL DISCHARGE DIAGNOSIS: Urinary tract infection. Possible pyelonephritis. Bilateral hydronephrosis. Diabetes mellitus. Morbid obesity. PLAN: Discharge patient to home today. Continue same home medications. No new prescriptions. Follow up with Dr. Haro in 1 week. Follow up with PCP in3-5 days. This case was reviewed and discussed with my supervising physician Dr. Pang and the above assessment and plan was formulated and agreed upon. STEPHANIE LIZARRAGA Sep 17, 2025 20:17
== END 2025-09-17 18:45 | disposition home or self-care (01) | DRG 690 ==
LOC: EDH 13:35 → EDHIP 13:36 → UNDOADMIN 13:36 → DIRECT 13:36 → 1MS 19:00
PROVIDERS: ADMIT Internal Medicine Infectious Disease; ATTEND Internal Medicine Infectious Disease
DX: N13.6 Pyonephrosis (principal); E66.01 Morbid (severe) obesity due to excess calories; E11.9 Type 2 diabetes mellitus without complications; Z96.653 Presence of artificial knee joint, bilateral; E78.5 Hyperlipidemia, unspecified; R31.9 Hematuria, unspecified; I10 Essential (primary) hypertension; Z90.710 Acquired absence of both cervix and uterus; Z83.3 Family history of diabetes mellitus; Z68.37 Body mass index [BMI] 37.0-37.9, adult; Z79.899 Other long term (current) drug therapy
CPT/HCPCS: 36415; 74176; 74177; 80048; 80053; 81001; 82948; 83735; 85025; 85027; 85610; 85730; 87086; 90732; J2185; J3475; J7120; Q9967

== ENCOUNTER → 2025-11-05 | Outpatient (CLI) | payer OTHER ==
--- NOTE | 2025-11-05 22:34 | HMCIMG ---
STUDY CT abdomen and pelvis without IV contrast. HISTORY Unspecified hydronephrosis. TECHNIQUE Axial CT images of the abdomen and pelvis obtained without intravenous contrast. COMPARISON CT abdomen and pelvis without contrast 09/15/2025. FINDINGS Lung bases Lung bases are clear. No pleural effusion is identified. Liver Liver is enlarged with diffusely decreased attenuation, compatible with hepatomegaly and hepatic steatosis. No focal hepatic lesion is identified. Gallbladder and bile ducts Gallbladder appears within normal limits. No radiopaque gallstones or biliary ductal dilatation is seen. Pancreas Pancreas is normal in contour without peripancreatic inflammatory change. Spleen Spleen is normal in size and attenuation. Adrenal glands Adrenal glands are unremarkable. Kidneys, ureters, and bladder There is moderate right hydroureteronephrosis without a visualized obstructing calculus. 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 Urinary bladder demonstrates diffuse wall thickening measuring up to approximately 0.8 cm with perivesical fat stranding, compatible with chronic cystitis. Stomach and bowel Stomach is unremarkable. Sigmoid colonic diverticulosis is present without CT evidence of diverticulitis. No bowel obstruction or CT evidence of enteritis or colitis is identified. Appendix Appendix is visualized and normal without evidence of acute appendicitis. Peritoneum No free intraperitoneal air or free fluid is identified. Lymph nodes No pathologically enlarged intra abdominal or pelvic lymph nodes are seen. Reproductive Reproductive organs are unremarkable as visualized. Vasculature No abdominal aortic aneurysm is demonstrated. Bones There is a dextroscoliotic deformity of the lumbar spine with a Anthony angle of approximately 18 degrees and associated degenerative change. No acute osseous abnormality or aggressive osseous lesion is identified. IMPRESSION * Moderate right hydroureteronephrosis without a visualized obstructing calculus; if clinically warranted, further evaluation with CT urography or ultrasound could be considered to assess for an occult distal obstruction. 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 * Chronic cystitis with diffuse bladder wall thickening and perivesical fat stranding, on a background of hepatomegaly with hepatic steatosis, sigmoid diverticulosis without diverticulitis, and lumbar dextroscoliosis. /[place]
== END | disposition home or self-care (01) ==
LOC: RAH 11:17
PROVIDERS: ATTEND Urology
DX: K57.30 Diverticulosis of large intestine without perforation or abscess without bleeding (principal); N13.30 Unspecified hydronephrosis; K76.0 Fatty (change of) liver, not elsewhere classified; N30.20 Other chronic cystitis without hematuria; R16.0 Hepatomegaly, not elsewhere classified; M41.86 Other forms of scoliosis, lumbar region
CPT/HCPCS: 74176